=== PATIENT | female | born 1990 | race African-American/Black ===

== ENCOUNTER 2021-05-15 13:49 | Emergency (ER) | payer OTHER, SELFPAY ==
[2021-05-15 14:27] VITALS: BP 114/81; PULSE 84; RESP 18; TEMP 36.7; O2SAT 99; BMI 31.9
[2021-05-15 17:18] VITALS: BP 118/79; PULSE 78; RESP 14; TEMP 36.6; O2SAT 99
--- NOTE | 2021-05-15 17:25 | ED.NECK ---
HPI - Neck Pain/Injury General Chief Complaint: Headache Stated Complaint: neck & back pain, headache Time Seen by Provider: 05/15/21 17:03 Source: patient Mode of arrival: ambulatory Limitations: no limitations History of Present Illness HPI Narrative: 30 y/o female with no medical history to the ER with 2 days of left-sided neck pain and headache. She reports waking up with the pain and thinks she slept funny. 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 She reports the pain is on the side of her left neck and radiates up into her head behind her ear. She has no ear pain, fever, chills, confusion, lethargy, vision changes, vomiting. She has been taking Motrin with with brief relief, but the pain woke her up in the middle the night last night she was unable to get sleep. Pain is worse with rotation of the head to the right and palpation of the soft tissues. She also reports she gets ?pain in strange places ?when she gets a kidney infection and wants to be sure she does not have a kidney infection. She denies any dysuria or hematuria. Denies chance of . complaint: neck pain Onset (ago): day(s) (2) Place: home Radiation: left lateral Severity: moderate and severe Severity scale (1-10): 7 Quality: aching, spasming and throbbing Duration: intermittent Relieving factors: other (Ibuprofen) Exacerbating factors: movement of neck Associated symptoms: none Treatments prior to arrival: none Related Data Previous Rx's Medication Instructions Recorded cyclobenzaprine 10 mg tablet 10 mg PO TID PRN #12 tab 05/15/21 ibuprofen 600 mg tablet 600 mg PO Q8H PRN #20 tab 05/15/21 lidocaine 5 % topical patch 1 patch TOPICAL DAILY #15 ea 05/15/21 Allergies Allergy/AdvReac Type Severity Reaction Status Date / Time No Known Allergies Allergy Unverified 03/21/20 18:58 [No Known Allergies*] Review of Systems Review of Systems: Constitutional: No Fever, No Chills ENT/Mouth: No sore throat, No Rhinorrhea, No Swallowing Difficulty, No ear pain Cardiovascular: No Chest Pain, No SOB Respiratory: No Cough, No Sputum Gastrointestinal: + Nausea, No Vomiting, No Diarrhea, No abdominal Pain Genitourinary: No Dysuria, No Urinary Frequency, No Hematuria Musculoskeletal: No joint pain, + Myalgias Skin: No Skin Lesions, No rash Neuro: No Weakness, No Numbness, No Dizziness, + Headache Heme/Lymph: No Bruising, No Lymphadenopathy PMFSH Past Medical History Medical History (Updated 05/15/21 @ 17:33 by MAGDA Deshpande) Kidney infection Migraines Mitral valve prolapse Surgical History History of removal of cyst Social History Social History Advance Directives: No Advance Directives Information Provided: No Patient : No Physical Exam Vital Signs: Vital Signs: Last Vital Signs Temp 97.8 F 05/15/21 17:18 Pulse 78 05/15/21 17:18 Resp 14 05/15/21 17:18 BP 118/79 05/15/21 17:18 Pulse Ox 99 05/15/21 17:18 Body Mass Index 31.9 Appearance: Alert. Oriented X3. No acute distress. Eyes: Pupils equal, round and reactive to light. ENT: Pharynx normal. normal TM's bilaterally. Neck: Normal inspection. Left lateral neck with soft tissue tenderness and palpable spasm. normal ROM with pain upon left lateral rotation of the head. tenderness at left occiput. no nuchal rigidity CVS: Normal heart rate and rhythm. Pulses normal. Respiratory: No respiratory distress. Breath sounds normal. Skin: Skin warm and dry. Normal skin color. Normal skin turgor. No rashes. Extremities: No lower extremity edema. Neuro: Oriented X 3. No motor deficit. No sensory deficit. Ambulates with steady gait Course Course Course Narrative: 30 y/o female presenting with non-traumatic left sided neck pain, worse with palpation and movement. Non-toxic with no meningeal signs. No photosensitivity. Pain is most likely muscular given history and exam findings. Will give dose of IM Toradol, tylenol and lidoderm and reassess. UA ordered per her request. Reevaluation(s) Reevaluation #1: UA negative. Pain improved. Stable for d/c home with treatment for cervical muscle strain. Patient agrees with plan. MDM - Neck Pain/Injury Lab Data Labs: Lab Results 05/15/21 05/15/21 Range/Units 17:30 17:30 Urine Color YELLOW Urine Appearance CLEAR Urine pH 6.0 (5.0-8.0) Ur Specific [place] >= 1.030 H (1.005-1.025) Urine Protein NEG (NEG-TRACE) MG/DL Urine Glucose (UA) NEG (NEG) MG/DL Urine Ketones NEG (NEG) MG/DL Urine Blood NEG (NEG) Urine Nitrite NEG (NEG) Ur Leukocyte Esterase NEG (NEG) Urine Test NEGATIVE (NEGATIVE) Discharge Plan Discharge Clinical Impression: Cervical muscle strain Qualifiers: Encounter type: initial encounter Qualified Code(s): S16.1XXA - Strain of muscle, fascia and tendon at neck level, initial encounter Patient Disposition: Home, Self-Care Instructions: Cervical Strain (ED) Additional Instructions: Your pain is most likely due to muscle strain and spasm. Recommend rest, gentle massage and gentle range of motion exercises. Use a heating pad to the area on medium heat several times per day. Take medications as prescribed to help with pain and discomfort. Follow up with your Primary Care Doctor this week. If your pain worsens, if you develop new numbness, tingling, weakness, severe headache, vomiting or any other concerning symptoms call 911 or come back to the ER right away for evaluation. Prescriptions: New lidocaine 5 % adhesive patch,medicated 1 patch topical DAILY Qty: 15 RF: 0 cyclobenzaprine 10 mg tablet 10 mg PO TID PRN (Reason: muscle spasm) Qty: 12 RF: 0 ibuprofen 600 mg tablet 600 mg PO Q8H PRN (Reason: pain) Qty: 20 RF: 0 Interventions: ED Discharge Assessment Last Done: 05/15/21 18:01 Discharge Date/Time: 05/15/21 18:01
[2021-05-15] MEDS: Lidocaine 4 % Patch ADH..PATCH 1 PATCH TRANSDERMA (17:34)
[2021-05-15 17:35] LABS: Appearance Urine CLEAR; Color Urine YELLOW; Glucose Urine UA NEG (NEG); Leukocyte Esterase Urine NEG (NEG); Nitrite Urine NEG (NEG); Specific Gravity - Urine >= 1.030 (1.005-1.025); Urine Blood NEG (NEG); Urine Ketones NEG (NEG); Urine Protein NEG (NEG-TRACE)
[2021-05-15] MEDS: Ketorolac Tromethamine 15 MG/ML VIAL 30 MG IM (17:35)
[2021-05-15] MEDS: Acetaminophen 325 MG TABLET 975 MG PO (17:35)
[2021-05-15 17:41] LABS: Urine Pregnancy NEGATIVE (NEGATIVE)
[2021-05-15 17:42] LABS: UPreg QC Valid YES
== END 2021-05-15 18:01 | disposition home or self-care (01) ==
PROVIDERS: Physician Assistant; Emergency Provider Internal Medicine; PCP Internal Medicine
DX: S16.1XXA Strain of muscle, fascia and tendon at neck level, initial encounter (principal); X58.XXXA Exposure to other specified factors, initial encounter; Y93.9 Activity, unspecified; Y92.9 Unspecified place or not applicable; Y99.9 Unspecified external cause status
CPT/HCPCS: 81003; 81025; 96372; 99284; J1885

== ENCOUNTER 2023-07-11 15:12 | Emergency (ER) | payer SELFPAY ==
[2023-07-11 15:16] VITALS: BP 119/78; PULSE 105; RESP 18; TEMP 37.3; O2SAT 99
--- NOTE | 2023-07-11 15:19 | ED.GENADULT ---
HPI - General Adult General Chief complaint: Abdominal Pain Stated complaint: ? kidney infection Time Seen by Provider: 07/11/23 15:50 Source: patient Mode of arrival: ambulatory Limitations: no limitations History of Present Illness HPI narrative: Patient is a 33-year-old female presenting to the emergency department with complaint of generalized body aches, subjective fever, urinary frequency for the past 3 days. Has not checked her temperature with a thermometer. Denies any dysuria, hematuria. Does report history of frequent pyelonephritis. Denies current back or flank pain. Denies cough, sore throat, ear pain. Has been using ibuprofen which has decreased sweats/chills but not so much pain. Denies sick contacts. MD complaint: body aches Onset (ago): day(s) Severity: moderate Quality: aching Pain Consistency: colicky Relieving factors: none Exacerbating factors: movement Treatments prior to arrival: NSAID Related Data Previous Rx's Medication Instructions Recorded cyclobenzaprine 10 mg tablet 10 mg PO TID PRN muscle spasm #12 05/15/21 tabs ibuprofen 600 mg tablet 600 mg PO Q8H PRN pain #20 tabs 05/15/21 lidocaine 5 % topical patch 1 patch topical DAILY #15 ea 05/15/21 amoxicillin 875 mg-potassium 1 tab PO BID 10 days #20 tabs 07/11/23 clavulanate 125 mg tablet Allergies Allergy/AdvReac Type Severity Reaction Status Date / Time No Known Allergies Allergy Unverified 03/21/20 18:58 [No Known Allergies*] Review of Systems Review of Systems: As per HPI. Yes all other systems are reviewed and are negative Constitutional: Constitutional: Reports as per HPI [facility] Past Medical History Onset Date is defined in the Problem List Problems that require an onset date and time if occurred within 24 hrs of arrival to the ED Aortic Dissection and Rupture; Neurologic impairment; Cardiopulmonary Arrest; Endotracheal Intubation; Insertion or Replacement of Mechanical Circulatory Assist Device Medical History (Updated 07/11/23 @ 17:39 by Elsa Lopez NP) Migraines Kidney infection Mitral valve prolapse Surgical History History of removal of cyst Social History Social History Smoked in Last 30 Days: No Use of substances other than those prescribed or required for medical reasons: Yes Substance Use Type: Marijuana Advance Directives: No Advance Directives Information Provided: No Patient : No Physical Exam ED Vital Signs: Vital Signs - 24 hr 07/11/23 15:16 07/11/23 16:22 07/11/23 18:06 Temperature 99.2 F 100.5 F H 100.4 F Pulse Rate 105 H 106 H 106 H Respiratory Rate 18 16 18 Blood Pressure 119/78 121/75 103/61 Pulse Oximetry 99 97 97 Oxygen Delivery Method Room Air Room Air Room Air BMI result Body Mass Index 30.0 Vital signs have been reviewed and appear to be correct. Blood pressure normal. Heart rate mild tachycardia. Respiratory rate normal. Temperature normal. Oxygen saturation normal. Const General: cooperative, healthy appearing and no acute distress Orientation/consciousness: oriented to person, oriented to place, oriented to time and patient oriented x3 Limitations: no limitations HENMT Head: Yes normocephalic and Yes atraumatic Ears: external ears normal, EAC's normal, mastoids normal and TM abnormal erythematous bilateral; not bulging and not with effusion General nose exam: Normal external nose present Face and sinus: Yes face symmetric Mouth: oropharynx normal and moist mucous membranes Throat: Yes uvula midline Eyes Pupils: Equal, round and reactive pupils present Neck Neck: Yes normal visual inspection and Yes supple Lymphatic: no lymphadenopathy noted Resp Effort & Inspection: normal respiratory effort and able to speak in complete sentences Auscultation: clear to auscultation bilaterally Cardio Rate: regular rate Rhythm: regular rhythm Heart sounds: S1 normal heart sound present and S2 normal heart sound present GI Palpation (GI): Soft to palpation and nontender Auscultation: normoactive bowel sounds General: Yes no CVA tenderness Back/Spine/Pelvis Back: no CVA tenderness Skin General skin exam: elasticity normal and turgor normal Neuro General: oriented to person, oriented to place, oriented to time, patient oriented x3, moves all extremities, no focal motor deficits and CN's II-XI intact bilaterally Cranial nerves: Yes Equal, round and reactive pupils present Cognition (Neuro): normal cognition Extrem General: Yes full ROM, Yes no pedal edema and Yes no calf tenderness Psych Mental Status: mental status grossly normal Affect: normal affect Thought process: Normal thought process present Course Course Course Narrative: RME; 33 yold female presents to the ED increase urinary frequency, night sweats, fever, chills, and slight back pain. labs, UA< UCG, and SARS ordered Medications Administered Discontinued Medications Generic Name Dose Route Start Last Admin Trade Name Barber PRN Reason Stop Dose Admin Acetaminophen 650 mg 07/11/23 16:31 07/11/23 17:05 Acetaminophen 325 Mg Tablet PO 07/11/23 16:32 650 mg ONCE ONE Administration Medical Decision Making Medical Decision Making [facility] Narrative: Patient is a 33-year-old female presenting to the emergency department with complaint of generalized body aches, subjective fever, urinary frequency for the past 3 days. On exam patient is awake, A+Ox3, mildly tachycardic, VS otherwise WNL, afebrile, normal neurological exam without focal deficits, physical exam findings as above. Given reported symptoms and physical exam findings, initial differential includes viral illness, covid, flu, strep pharyngitis, UTI/pyelonephritis. Labs notable for mild leukocytosis, no evidence of BRITTANY or other electrolyte abnormalities. Strep swab positive, swabs for flu, Covid, RSV all negative. UA positive for 2+ leukocytes, positive nitrates, 2+ blood, greater than 50 wbc's. Will treat for both strep and UTI with Augmentin. Instructed patient to follow up with PCP. Strict return precautions discussed. Patient verbalized understanding of and agreement with plan. Differential Diagnosis Differential Diagnoses: The differential diagnosis associated with the presentation includes As per [facility] Lab Data [facility] Lab Attestation statement: I reviewed the patient's lab results. As per [facility] 07/11/23 15:57 07/11/23 15:57 Labs: Lab Results 07/11/23 07/11/23 Range/Units 15:57 16:55 WBC 12.7 H (4.8-10.8) X10*3/uL RBC 4.18 L (4.20-5.50) X10*6/uL Hgb 12.8 (12.0-16.0) g/dl Hct 38.4 (37.0-47.0) % MCV 91.9 (80.0-98.0) fL MCH 30.6 (27.0-33.0) pg MCHC 33.3 (31.0-35.0) g/dl RDW 13.2 (11.0-16.0) % Plt Count 257 (160-400) X10*3/uL MPV 8.6 L (9.4-12.3) fL Immature Gran % (Auto) 0.3 (0.0-0.4) % Neut % (Auto) 72.4 (45-73) % Lymph % (Auto) 15.2 L (20-40) % Lake % (Auto) 11.8 H (2-11) % Eos % (Auto) 0.1 (0-4) % Baso % (Auto) 0.2 (0-2) % Lymph # (Auto) 1.9 (1.2-4.9) X10*3/uL Lake # (Auto) 1.5 H (0.1-1.2) X10*3/uL Eos # (Auto) 0.0 (0.0-0.4) X10*3/uL Baso # (Auto) 0.0 (0.0-0.2) X10*3/uL Abs Immat Gran (auto) 0.04 H (0.00-0.03) X10*3/uL Absolute Neuts (auto) 9.2 H (2.0-8.3) x10*3/uL Absolute Nucleated RBC 0.000 (0.0-0.012) X10*3/uL Nucleated RBC % (auto) 0.0 (0.0-0.2) /100WBC Sodium 137 (135-145) mmol/L Potassium 3.9 (3.3-5.1) mmol/L Chloride 105 (96-108) mmol/L Carbon Dioxide 24 (22-29) mmol/L Anion Gap 12 (12-20) BUN 10 (9-16) mg/dL Creatinine 0.78 (0.5-1.4) mg/dL Estim Creat Clear Calc 118.2 Estimated GFR > 60 Random Glucose 98 (60-115) mg/dL Calcium 9.4 (8.4-10.2) mg/dL Total Bilirubin 0.3 (0.0-1.0) mg/dL AST 13 (5-31) U/L ALT 9 (0-31) U/L Alkaline Phosphatase 50 (39-117) U/L Total Protein 7.8 (6.5-8.0) g/dL Albumin 4.3 (3.5-5.0) g/dL Beta HCG, Quant < 2 mIU/mL Urine Color Yellow Urine Appearance Clear Urine pH 6.0 (5.0-9.0) Ur Specific [place] 1.020 (1.005-1.025) Urine Protein Trace (Neg-Trace) mg/dL Urine Glucose (UA) Negative (Negative) mg/dL Urine Ketones Negative (Negative) mg/dL Urine Blood Moderate (2+) H (Negative) Urine Nitrite Positive H (Negative) Ur Leukocyte Esterase Moderate (2+) H (Negative) Urine RBC 11-20 H (0-2) /HPF Urine WBC >50 H (0-5) /HPF Ur Squamous Epith Cells 3-5 (0-2) /HPF Urine Bacteria 4+ (None Seen) Hyaline Casts 0-2 (0-2) /LPF Urine Test NEGATIVE (NEGATIVE) Influenza Type A (PCR) NEGATIVE (Negative) Influenza Type B (PCR) NEGATIVE (Negative) RSV RNA Qual (PCR) NEGATIVE (Negative) SARS-CoV-2 RNA (RT-PCR) NEGATIVE (Negative) S. pyogenes GrpA ALEJO Positive A (Negative) External Record Review External record reviewed: Inpatient record, Office record and Outpatient record Prescription Management I considered prescription management with: Antibiotic Discharge Plan Discharge Clinical Impression: Acute streptococcal pharyngitis, Urinary tract infection Patient Disposition: Home, Self-Care Instructions: Amoxicillin/Clavulanate Potassium (By mouth), Urinary Tract Infection in Women (DC), Strep Throat (DC) Additional Instructions: You have been evaluated in the emergency department today for fever, body aches. Your evaluation, including urinalysis, suggests that your symptoms are due to urinary tract infection as well as strep throat. Please take your prescribed antibiotics for the full course of medication as directed. Please follow-up with your primary care provider within 2 days. Return to the emergency department if you experience fevers 100.4? F or greater, worsening or uncontrolled pain, vomiting, flank pain, difficulty swallowing, difficulty breathing, or for any other concerning symptoms. Prescriptions: New amoxicillin-pot clavulanate 875-125 mg tablet 1 tab PO BID 10 Days Qty: 20 0RF No Action lidocaine 5 % adhesive patch,medicated 1 patch topical DAILY Qty: 15 0RF Rx Instructions: leave on most painful area for up to 12 hrs cyclobenzaprine 10 mg tablet 10 mg PO TID PRN (Reason: muscle spasm) Qty: 12 0RF ibuprofen 600 mg tablet 600 mg PO Q8H PRN (Reason: pain) Qty: 20 0RF Stand Alone Forms: Work/School Release Interventions: ED Discharge Assessment Last Done: 07/11/23 18:07 Discharge Date/Time: 07/11/23 18:09
[2023-07-11 16:22] VITALS: BP 121/75; PULSE 106; RESP 16; TEMP 38.1; O2SAT 97
--- NOTE | 2023-07-11 16:43 | PC.NURSE ---
a&ox4, vss and up to date aside from oral temp of 100.5. pt presents to ED with RUQ pain that radiates to right flank. denies n/v/d but verbalizes fevers/chills sensation since wednesday. right flank tender upon palpation. no sob/wob noted. respirations even and unlabored. urine sample cup placed bedside so sample can be obtained. family bedside for support. resting comfortably in no apparent distress. call aponte placed within reach.
--- NOTE | 2023-07-11 17:06 | PC.NURSE ---
tylenol administered for fever - will reassess oral temp.
[2023-07-11 18:06] VITALS: BP 103/61; PULSE 106; RESP 18; TEMP 38; O2SAT 97
== END 2023-07-11 18:09 | disposition home or self-care (01) ==
PROVIDERS: Emergency Provider Student in an Organized Health Care Education/Training Program
DX: J02.0 Streptococcal pharyngitis (principal); N39.0 Urinary tract infection, site not specified; R35.0 Frequency of micturition; R52 Pain, unspecified; R50.9 Fever, unspecified; Z11.52 Encounter for screening for COVID-19; Z20.828 Contact with and (suspected) exposure to other viral communicable diseases
CPT/HCPCS: 0241U; 80053; 81001; 81003; 81025; 84702; 85025; 87086; 87088; 87186; 87651; 99283; 99284